=== PATIENT | male | born 1980 | race Caucasian/White ===

== ENCOUNTER 2020-02-10 03:15 | Emergency (ER) | payer SELFPAY ==
[~2020-02-10] VITALS: Ht 190 cm; Wt 120.5 kg
--- OUTSIDE RECORDS SUMMARY | 2020-02-10 03:21 | XMS REPORT ---
Author Author Krystina JACKSON Organization [employer] Address Unknown Phone Unavailable Care Team Providers Care Supervisor [employer] Name Role Phone ADINA JACKSON CP Unavailable Allergies, Adverse Reactions, Alerts Substance Reaction Event Type N.K.D.A. Info Not Available Non Drug Allergy Problems Problem Type Condition Code Onset Dates Condition Statu s Assessment Skin tag L91.8 Active Medications No Known Medications Procedures Procedure Coding System Code Date Office Visit, New Pt., Level 2 CPT-4 39401 N ov 2014 Vital Signs Date/Time: May 30, 2015 Temperature 97.7 F Weight 285.5 lbs Height 74 in BMI 36.65 Index Blood Pressure Diastolic 82 mmHg Blood Pressure Systolic 128 mmHg Cardiac Monitoring Heart Rate 80 bpm Results No Known Results Summary Purpose eClinicalWorks Submission
--- OUTSIDE RECORDS SUMMARY | 2020-02-10 03:21 | XMS REPORT ---
Author Author Krystina DIAZ Organization [facility] Address [address] [place] [address] Care Team Providers Care Level Glass Vial Filler Name Role Phone MISHA DIAZ Unavailable PROBLEMS Type Condition ICD9-CM Code [id number] Code Onset Dates Condition S tatus SNOMED Code Problem Back pain of lumbar region with sciatica M54.40 Active 937187109 Problem Seasonal allergic rhinitis due to pollen J30.1 Active 43533475 Problem Anxiety F41.9 Active 85325536 Problem Acute right-sided low back pain with right-sided sciatica M54.41 Active 057312952 Problem Primary insomnia F51.01 Active 397 2004 ALLERGIES No Known Allergies ENCOUNTERS Encounter Location Date Diagnosis [facility] [address] [address] 13 Dec, 2017 Back pain of lumbar region w ith sciatica M54.40 [facility] [address] [address] 04 Dec, 2017 Acute maxillary sinusitis, r ecurrence not specified J01.00 ; Sinus pressure J34.89 and Seasonal allergic rhinitis due to pollen J30.1 [facility] [address] [address] 14 Nov, 2017 Sore throat J02.9 and Season al allergic rhinitis, unspecified trigger J30.2 [facility] [address] [address] 07 Jun, 2017 Acute right-sided low back p ain with right-sided sciatica M54.41 [facility] [address] [address] May, Anxiety F41.9 and Primary in somnia F51.01 [facility] [address] [facility] [id number] [address] [address] Apr, Acute non-recurrent maxillar y sinusitis J01.00 [facility] [address] [id number] [address] [place] [address] 09 Apr, 2017 Anxiety F41.9 [facility] [address] [facility] [id number] [address] [place] [address] Jan, Anxiety F41.9 and Primary in [facility] F51.01 [facility] [address] [facility] [id number] [address] [place] [address] May, Skin tag L91.8 and Atrophic disorder of skin, unspecified L90.9 [facility] [address] [facility] [id number] [address] [place] [address] May, Skin tag L91.8 IMMUNIZATIONS No Known Immunizations SOCIAL HISTORY Never Assessed REASON FOR VISIT Leg numbness started Sat with back pain JStrasserRN, Twisted ankle yesterday PLAN OF CARE Activity Details Follow Up prn Reason: VITAL SIGNS Height 74 in 2018-01-06 Weight 273.2 lbs 2018-01-06 Temperature 97.5 degrees Fahrenheit 2018-01-06 Heart Rate 66 bpm 2018-01-06 Respiratory Rate 20 2018-01-06 BMI 35.07 kg/m2 2018-01-06 Blood pressure systolic 124 mmHg 2018-01-06 Blood pressure diastolic 80 mmHg 2018-01-06 MEDICATIONS Medication Instructions Dosage Frequency Start Date End Date Duration S tatus PredniSONE 20 MG Orally 3 tablets x 3 days, f ollowed by 2 tablets x 3 days, followed by 1 tablet x 3 days. as directed Dec, Dec, 9 days Active Claritin 10 MG Orally Once a day 1 tablet 24h Active Cyclobenzaprine HCl 10 MG Orally Three times a day 1 tablet as need ed 8h Dec, Dec, 7 days Active RESULTS No Results PROCEDURES No Known procedures INSTRUCTIONS MEDICATIONS ADMINISTERED No Known Medications MEDICAL (GENERAL) HISTORY Type Description Date Medical History Anxiety Surgical History TONSILECTOMY
--- OUTSIDE RECORDS SUMMARY | 2020-02-10 03:21 | XMS REPORT ---
Author Author Krystina THORNTON Organization [facility] Address [address] [place] [address] Care Team Providers Care Metalizing Supervisor Name Role Phone MARY JANEANISHLIBANJESSICA Magana Unavailable PROBLEMS Type Condition ICD9-CM Code [id number] Code Onset Dates Condition S tatus SNOMED Code Problem Acute right-sided low back pain with right-sided sciatica M54.41 Active 522148330 Problem Primary insomnia F51.01 Active 397 2004 Problem Anxiety F41.9 Active 83845899 ALLERGIES No Known Allergies ENCOUNTERS Encounter Location Date Diagnosis [facility] [address] [address] Jun, Acute right-sided low back p ain with right-sided sciatica M54.41 [facility] [address] [address] May, Anxiety F41.9 and Primary in somnia F51.01 [facility] [address] [address] Apr, Acute non-recurrent maxillar y sinusitis J01.00 [facility] [address] [place] [id number] [address] [place] [address] Apr, Anxiety F41.9 [place] [address] [place] [id number] [address] [place] [address] Jan, Anxiety F41.9 and Primary in somnia F51.01 [facility] [address] [place] [id number] [address] [place] [address] May, Skin tag L91.8 and Atrophic disorder of skin, unspecified L90.9 [facility] [address] [place] [id number] [address] [place] [address] May, Skin tag L91.8 IMMUNIZATIONS No Known Immunizations SOCIAL HISTORY Never Assessed REASON FOR VISIT Depression fu -- tino doan PLAN OF CARE Activity Details Follow Up 4 Weeks Reason: VITAL SIGNS Height 74 in 2017-05-04 Weight 266.0 lbs 2017-05-04 Temperature 97.8 degrees Fahrenheit 2017-05-04 Heart Rate 82 bpm 2017-05-04 Respiratory Rate 20 2017-05-04 BMI 34.15 kg/m2 2017-05-04 Blood pressure systolic 138 mmHg 2017-05-04 Blood pressure diastolic 80 mmHg 2017-05-04 MEDICATIONS Medication Instructions Dosage Frequency Start Date End Date Duration S tatus Celexa 40 mg Orally Once a day 1 tablet 24h Apr, 30 day(s) Active Celexa 20 mg Orally Once a day 1 tablet 24h Jan, 30 day(s) Active Alprazolam 0.5 MG Orally Twice a day as needed 1 tablet Apr, 60 days Active Xanax 0.25 MG Orally one hour before bed 1 tablet Jan, Active RESULTS No Results PROCEDURES No Known procedures INSTRUCTIONS MEDICATIONS ADMINISTERED No Known Medications MEDICAL (GENERAL) HISTORY Type Description Date Medical History Anxiety Surgical History TONSILECTOMY
--- OUTSIDE RECORDS SUMMARY | 2020-02-10 03:21 | XMS REPORT ---
Author Author Krystina RIOS N [facility] Organization [facility] Address [address] [place] [address] Care Team Providers Care Insulation Cutter And Former Name Role Phone RONNY RIOS Unavailable PROBLEMS Type Condition ICD9-CM Code [id number] Code Onset Dates Condition S tatus SNOMED Code Problem Back pain of lumbar region with sciatica M54.40 Active 203621118 Problem Seasonal allergic rhinitis due to pollen J30.1 Active 87380983 Problem Anxiety F41.9 Active 78326829 Problem Acute right-sided low back pain with right-sided sciatica M54.41 Active 657456064 Problem Primary insomnia F51.01 Active 397 2004 ALLERGIES No Known Allergies ENCOUNTERS Encounter Location Date Diagnosis [facility] [address] [address] 13 Dec, 2017 Back pain of lumbar region w ith sciatica M54.40 [facility] [address] [address] 04 Dec, 2017 Acute maxillary sinusitis, r ecurrence not specified J01.00 ; Sinus pressure J34.89 and Seasonal allergic rhinitis due to pollen J30.1 [facility] [address] [address] 14 Nov, 2017 Sore throat J02.9 and Season al allergic rhinitis, unspecified trigger J30.2 [facility] [address] [address] 07 Jun, 2017 Acute right-sided low back p ain with right-sided sciatica M54.41 [facility] [address] [address] May, Anxiety F41.9 and Primary in somnia F51.01 [facility] [address] [facility] [id number] [address] [place] [address] Apr, Acute non-recurrent maxillar y sinusitis J01.00 [facility] [address] [id number] [address] [place] [address] Apr, Anxiety F41.9 [facility] [address] [facility] [id number] [address] [place] [address] Jan, Anxiety F41.9 and Primary in [facility] F51.01 [facility] [address] [id number] [address] [place] [address] May, Skin tag L91.8 and Atrophic disorder of skin, unspecified L90.9 [facility] [address] [id number] [address] [place] [address] May, Skin tag L91.8 IMMUNIZATIONS No Known Immunizations SOCIAL HISTORY Never Assessed REASON FOR VISIT sinus congestion, facial pressure started yesterday JStrasserRN PLAN OF CARE Activity Details Follow Up prn Reason: VITAL SIGNS Height 74 in 2017-12-28 Weight 269.0 lbs 2017-12-28 Temperature 97.7 degrees Fahrenheit 2017-12-28 Heart Rate 68 bpm 2017-12-28 Respiratory Rate 20 2017-12-28 BMI 34.53 kg/m2 2017-12-28 Blood pressure systolic 144 mmHg 2017-12-28 Blood pressure diastolic 100 mmHg 2017-12-28 MEDICATIONS Medication Instructions Dosage Frequency Start Date End Date Duration S tatus Zithromax Z-Tucker 250 MG Orally Once a day 2 tablets on the first day, then 1 tablet daily for 4 days 24h Dec, Dec, 5 day(s) Acti ve Celexa 40 mg Orally Once a day 1 tablet 24h Apr, 30 day(s) Not-Taking Flonase 50 MCG/ACT Nasally Once a day 1 spray in each nostril 24h Apr, 30 day(s) Not-Taking Alprazolam 0.5 MG Orally Twice a day as needed 1 tablet Apr, 60 days Not-Taking PredniSONE 20 mg Orally Once a day 2 tablets 24h Dec, Dec, 05 days Active Claritin 10 MG Orally Once a day 1 tablet 24h Active RESULTS No Results PROCEDURES No Known procedures INSTRUCTIONS MEDICATIONS ADMINISTERED No Known Medications MEDICAL (GENERAL) HISTORY Type Description Date Medical History Anxiety Surgical History TONSILECTOMY
--- OUTSIDE RECORDS SUMMARY | 2020-02-10 03:21 | XMS REPORT ---
Author Author Krystina LOGAN Organization [facility] Address [address] [place] [address] Care Team Providers Care Fine Artist Name Role Phone LOGAN, LUIS Unavailable PROBLEMS Type Condition ICD9-CM Code SRE66-IX Code Onset Dates Condition S tatus SNOMED Code Problem Back pain of lumbar region with sciatica M54.40 Active 254763133 Problem Seasonal allergic rhinitis due to pollen J30.1 Active 14819822 Problem Anxiety F41.9 Active 65565784 Problem Acute right-sided low back pain with right-sided sciatica M54.41 Active 404043052 Problem Primary insomnia F51.01 Active 397 2004 ALLERGIES No Known Allergies ENCOUNTERS Encounter Location Date Diagnosis [facility] [address] [address] 13 Dec, 2017 Back pain of lumbar region w ith sciatica M54.40 [facility] [address] [address] 04 Dec, 2017 Acute maxillary sinusitis, r ecurrence not specified J01.00 ; Sinus pressure J34.89 and Seasonal allergic rhinitis due to pollen J30.1 [facility] [address] [address] 14 Nov, 2017 Sore throat J02.9 and Season al allergic rhinitis, unspecified trigger J30.2 [facility] [address] [address] 07 Jun, 2017 Acute right-sided low back p ain with right-sided sciatica M54.41 [facility] [address] [address] May, Anxiety F41.9 and Primary in [facility] F51.01 [facility] [address] [facility] [id number] [address] [place] [address] Apr, Acute non-recurrent maxillar y sinusitis J01.00 [facility] [address] [facility] [id number] [address] [place] [address] Apr, Anxiety F41.9 [facility] [address] [facility] [id number] [address] [place] [address] Jan, Anxiety F41.9 and Primary in [facility] F51.01 [facility] [address] [facility] [id number] [address] [place] [phone] May, Skin tag L91.8 and Atrophic disorder of skin, unspecified L90.9 [facility] [address] [facility] [id number] [address] [place] [address] May, Skin tag L91.8 IMMUNIZATIONS No Known Immunizations SOCIAL HISTORY Never Assessed REASON FOR VISIT sore throat/fever/slight cough. been sick since thursday. [email or web address] PLAN OF CARE Activity Details Follow Up prn Reason: VITAL SIGNS Height 74 in 2017-12-07 Weight 269.0 lbs 2017-12-07 Temperature 97.0 degrees Fahrenheit 2017-12-07 Heart Rate 76 bpm 2017-12-07 Respiratory Rate 20 2017-12-07 BMI 34.53 kg/m2 2017-12-07 Blood pressure systolic 128 mmHg 2017-12-07 Blood pressure diastolic 78 mmHg 2017-12-07 MEDICATIONS Medication Instructions Dosage Frequency Start Date End Date Duration S tatus Flonase 50 MCG/ACT Nasally Once a day 1 spray in each nostril 24h Apr, 30 day(s) Not-Taking Celexa 40 mg Orally Once a day 1 tablet 24h Apr, 30 day(s) Not-Taking Alprazolam 0.5 MG Orally Twice a day as needed 1 tablet Apr, 60 days Not-Taking RESULTS Name Result Date Reference Range STREP A (IN HOUSE) 2017-12-07 STREP A negative Control + Lot # [id number] Exp date 2019 PROCEDURES Procedure Date Ordered Result Body Site STREP A ASSAY W/OPTIC December 07, 2017 INSTRUCTIONS MEDICATIONS ADMINISTERED No Known Medications MEDICAL (GENERAL) HISTORY Type Description Date Medical History Anxiety Surgical History TONSILECTOMY
--- OUTSIDE RECORDS SUMMARY | 2020-02-10 03:21 | XMS REPORT ---
Author Author Krystina DIAZ Organization [facility] Address [address] [place] [address] Care Team Providers Care Operating Room Registered Nurse Name Role Phone MISHA DIAZ Unavailable PROBLEMS Type Condition ICD9-CM Code [id number] Code Onset Dates Condition S tatus SNOMED Code Problem Acute right-sided low back pain with right-sided sciatica M54.41 Active 241476336 Problem Primary insomnia F51.01 Active 397 2004 Problem Anxiety F41.9 Active 84190156 ALLERGIES No Known Allergies ENCOUNTERS Encounter Location Date Diagnosis [facility] [address] [address] November, Sore throat J02.9 and Season al allergic rhinitis, unspecified trigger J30.2 [facility] [address] [place] [id number] [address] [place] [address] Jun, Acute right-sided low back p ain with right-sided sciatica M54.41 [facility] [address] [place] [id number] [address] [place] [address] May, Anxiety F41.9 and Primary in somnia F51.01 [facility] [address] [place] [id number] [address] [place] [address] Apr, Acute non-recurrent maxillar y sinusitis J01.00 [facility] [address] [place] [id number] [address] [place] [address] Apr, Anxiety F41.9 [facility] [address] [place] [id number] [address] [place] [address] Jan, Anxiety F41.9 and Primary in somnia F51.01 [facility] [address] [place] [id number] [place] [address] [address] May, Skin tag L91.8 and Atrophic disorder of skin, unspecified L90.9 [facility] [address] [facility] [id number] [place] [address] May, Skin tag L91.8 IMMUNIZATIONS Vaccine Route Administration Date Status DEXAMETHASONE 4MG/ML (PER 1 MG) IM Intramuscular May 18, 2017 Administered DEPO MEDROL 80 MG/ML IM Intramuscular May 18, 2017 Administer ed SOCIAL HISTORY Never Assessed REASON FOR VISIT facial pain and pressure x2 nights JStrasserRN PLAN OF CARE Activity Details Follow Up prn Reason: VITAL SIGNS Height 74 in 2017-05-18 Weight 265 lbs 2017-05-18 Temperature 97.2 degrees Fahrenheit 2017-05-18 Heart Rate 74 bpm 2017-05-18 Respiratory Rate 22 2017-05-18 BMI 34.02 kg/m2 2017-05-18 Blood pressure systolic 140 mmHg 2017-05-18 Blood pressure diastolic 80 mmHg 2017-05-18 MEDICATIONS Medication Instructions Dosage Frequency Start Date End Date Duration S tatus Celexa 40 mg Orally Once a day 1 tablet 24h Apr, 30 day(s) Active Zyrtec Allergy 10 MG Orally Once a day 1 tablet 24h Apr, 7 May, 30 day(s) Active Flonase 50 MCG/ACT Nasally Once a day 1 spray in each nostril 24h Apr, 30 day(s) Active Alprazolam 0.5 MG Orally Twice a day as needed 1 tablet Apr, 60 days Active RESULTS No Results PROCEDURES Procedure Date Ordered Result Body Site DEXAMETHASONE 4MG/ML (PER 1 MG) May 18, 2017 THER/PROPH/DIAG INJ, SC/IM May 18, 2017 DEPO MEDROL 80 MG/ML May 18, 2017 INSTRUCTIONS MEDICATIONS ADMINISTERED No Known Medications MEDICAL (GENERAL) HISTORY Type Description Date Medical History Anxiety Surgical History TONSILECTOMY
--- OUTSIDE RECORDS SUMMARY | 2020-02-10 03:22 | XMS REPORT ---
Author Author Krystina DIAZ Organization [facility] Address [address] [place] [address] Care Team Providers Care Bike Assembler Name Role Phone MISHA DIAZ Unavailable PROBLEMS Type Condition ICD9-CM Code [id number] Code Onset Dates Condition S tatus SNOMED Code Problem Acute right-sided low back pain with right-sided sciatica M54.41 Active 941439472 Problem Primary insomnia F51.01 Active 397 2004 Problem Anxiety F41.9 Active 88196447 ALLERGIES No Known Allergies ENCOUNTERS Encounter Location Date Diagnosis [facility] [address] [address] November, Sore throat J02.9 and Season al allergic rhinitis, unspecified trigger J30.2 [facility] [address] [place] [id number] [address] [place] [address] Jun, Acute right-sided low back p ain with right-sided sciatica M54.41 [facility] [address] [place] [id number] [address] [place] [address] May, Anxiety F41.9 and Primary in somnia F51.01 [facility] [address] [place] [id number] [address] [place] [address] Apr, Acute non-recurrent maxillar y sinusitis J01.00 [facility] [address] [place] [id number] [address] [place] [address] Apr, Anxiety F41.9 [facility] [address] [place] [id number] [address] [place] [address] Jan, Anxiety F41.9 and Primary in somnia F51.01 [facility] [address] [place] [id number] [place], [place] [address] [address] May, Skin tag L91.8 and Atrophic disorder of skin, unspecified L90.9 [facility] [address] [facility] [id number] [place] [address] May, Skin tag L91.8 IMMUNIZATIONS No Known Immunizations SOCIAL HISTORY Never Assessed REASON FOR VISIT back pain for about 1 month. Sits in a chair at work all day JStrasserRN PLAN OF CARE Activity Details Follow Up prn Reason: VITAL SIGNS Height 74 in 2017-07-02 Weight 265.2 lbs 2017-07-02 Temperature 96.9 degrees Fahrenheit 2017-07-02 Heart Rate 74 bpm 2017-07-02 Respiratory Rate 20 2017-07-02 BMI 34.05 kg/m2 2017-07-02 Blood pressure systolic 138 mmHg 2017-07-02 Blood pressure diastolic 92 mmHg 2017-07-02 MEDICATIONS Medication Instructions Dosage Frequency Start Date End Date Duration S tatus Celexa 40 mg Orally Once a day 1 tablet 24h Apr, 30 day(s) Active Flonase 50 MCG/ACT Nasally Once a day 1 spray in each nostril 24h Apr, 30 day(s) Not-Taking Alprazolam 0.5 MG Orally Twice a day as needed 1 tablet Apr, 60 days Active PredniSONE 50 MG Orally Once a day 1 tablet 24h Jun, Jun, 5 days Active RESULTS No Results PROCEDURES No Known procedures INSTRUCTIONS MEDICATIONS ADMINISTERED No Known Medications MEDICAL (GENERAL) HISTORY Type Description Date Medical History Anxiety Surgical History TONSILECTOMY
--- OUTSIDE RECORDS SUMMARY | 2020-02-10 03:22 | XMS REPORT | Continuity of Care Document ---
Author Organization Unknown Address Unknown Phone Unavailable Allergies There is no data. Medications There is no data. Problems There is no data. Procedures There is no data. Results There is no data. Encounters ACCT No. Visit Date/Time Discharge Status Pt. Type Provider Facility Loc./Unit Complaint [id number] 01/06/2018 15:00:00 01/06/2018 23:59: 59 CLS Outpatient GALDINO ROBERSON [facility] WALK IN [facility]
--- OUTSIDE RECORDS SUMMARY | 2020-02-10 03:22 | XMS REPORT ---
Author Author Krystina GUTIÉRREZ [employer] Address Unknown Phone Unavailable Care Team Providers Care Slag Worker Name Role Phone YESICA GUTIÉRREZ CP Unavailable Allergies, Adverse Reactions, Alerts Substance Reaction Event Type N.K.D.A. Info Not Available Non Drug Allergy Problems Problem Type Condition Code Onset Dates Condition Statu s Assessment Atrophic disorder of skin, unspecified L90.9 Active Assessment Skin tag L91.8 Active Medications No Known Medications Procedures Procedure Coding System Code Date REMOVAL OF SKIN TAGS CPT-4 15768 Jun 12 5 Vital Signs Date/Time: Jun 12, 2015 Temperature 98.4 F Weight 285.3 lbs Height 74 in BMI 36.63 Index Blood Pressure Diastolic 92 mmHg Blood Pressure Systolic 144 mmHg Cardiac Monitoring Heart Rate 72 bpm Results No Known Results Summary Purpose eClinicalWorks Submission
[2020-02-10 03:28] VITALS: BP 131/87
[2020-02-10] MEDS ORDERED: TETANUS,DIPTH,PERTUSS P/F (BOOSTRIX) 0.5 ML VIAL IM ONE (03:30)
[2020-02-10] MEDS ORDERED: LIDOCAINE/EPI 2% 1:100,00 (XYLOCAINE) 20 ML VIAL ONE (03:30)
[2020-02-10] MEDS ORDERED: LIDOCAINE/EPI 2% 1:100,00 (XYLOCAINE) 20 ML VIAL INJ ONE (03:30)
[2020-02-10] MEDS ORDERED: CEPH-507 PO (03:55)
--- NOTE | 2020-02-10 03:56 | ED Lower Extremity ---
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 Bleeding controlled on arrival. Nursing Sepsis Screen: No Definite Risk Source: patient History of Present Illness Date Seen by Provider: Feb 10, 2020 Time Seen by Provider: 03:24 Initial Comments PT ARRIVES VIA POV FROM HOME STATES HE GOT UP TO GO TO BATHROOM AND TRIPPED ON SOMETHING AND HIT HIS LEFT NUNEZ ON METAL BED FRAME OCCURRED JUST PRIOR TO ARRIVAL HAS LACERATION TO LEFT NUNEZ NO OTHER INJURIES NO PAIN WITH WALKING NO PARESTHESIAS OR MOTOR DEFICITS LAST TETANUS IS > 10 YEARS AGO PCP: ANN Allergies and Home Medications Allergies Coded Allergies: No Known Drug Allergies (Unverified , 02/10/20) Home Medications Cephalexin 500 Mg Capsule, 500 MG PO QID Prescribed by: MARION HOFFMAN on 02/10/20 0355 Patient Home Medication List Home Medication List Reviewed: Yes Review of Systems Constitutional: no symptoms reported Musculoskeletal: see HPI Skin: see HPI Psychiatric/Neurological: No Symptoms Reported Past Citsvzm-Qahxjg-Sawfwt Hx Past Med/Social Hx: Reviewed and Corrections made Patient Social History Alcohol Use: Regular Use Recreational Drug Use: No Smoking Status: Current Everyday Smoker Type Used: Cigarettes 2nd Hand Smoke Exposure: Yes Recent Foreign Travel: No Contact w/Someone Who Travel: No Recent Infectious Disease Expo: No Recent Hopitalizations: No Immunizations Up To Date Tetanus Booster (TDap): More than 5yrs Seasonal Allergies Seasonal Allergies: No Past Medical History Surgeries: No Respiratory: No Cardiac: No Neurological: No Genitourinary: No Gastrointestinal: No Musculoskeletal: No Endocrine: No HEENT: No Cancer: No Psychosocial: No Integumentary: No Blood Disorders: No Physical Exam Vital Signs Vital Signs - First Documented 02/10/20 03:28 Temp 36.6 Pulse 71 Resp 16 B/P (MAP) 131/87 (102) Pulse Ox 98 O2 Delivery Room Air Capillary Refill : Less Than 3 Seconds Height, Weight, BMI Height: '" Weight: lbs. oz. kg; 33.00 BMI Method: General Appearance: WD/WN, no apparent distress Hips: left hip normal inspection Legs: left leg other (LACERATION TO LEFT NNUEZ, NO ACTIVE BLEEDING. NO BONY INJURY OR PAIN. MOTOR/SENSORY/VASCULAR INTACT. ) Knees: left knee normal inspection Ankles: left ankle normal inspection Feet: left foot normal inspection Neurologic/Tendon: normal sensation, normal motor functions, normal tendon functions Neurologic/Psychiatric: no motor/sensory deficits, alert, oriented x 3 Skin: normal color, warm/dry, other (7 CM FULL THICKNESS LACERATION TO LEFT MID NUNEZ) Procedures/Interventions Other Wound Location LEFT MID NUNEZ Wound Length (cm): 7 Wound's Depth, Shape: irregular, sub Q Wound Explored: clean Irrigated w/ Saline (ccs): 500 Betadine Prep?: No (BETASEPT) Anesthesia: Lidocaine w/ Epi (2%) Staple Repair: Stapler 35W Number of Sutures: 14 (CALVIN) Layer Closure?: 1 Sterile Dressing Applied?: Yes Progress/Results/Core Measures Results/Orders My Orders Orders - MARION HOFFMAN DO Dipht,María Elena(Acell),Tet Adult (Boostrix (02/10/20 03:30) Lidocaine/Epi 2% 1:100,000 (Xylocaine/Ep (02/10/20 03:30) Wound Dressing-Ed (02/10/20 03:30) Lidocaine/Epi 2% 1:100,000 (Xylocaine/Ep (02/10/20 03:30) Medications Given in ED Current Medications Medications Dose Ordered Sig/Floyd Route Start Time Stop Time Status Last Admin Dose Admin Diphtheria/ Tetanus/Acell Pertussis 0.5 ml ONCE ONCE IM 02/10/20 03:30 02/10/20 03:31 DC 02/10/20 03:45 0.5 ML Lidocaine/ Epinephrine 20 ml ONCE ONCE INJ 02/10/20 03:30 02/10/20 03:31 DC 02/10/20 03:40 20 ML Vital Signs/I&O 02/10/20 03:28 Temp 36.6 Pulse 71 Resp 16 B/P (MAP) 131/87 (102) Pulse Ox 98 O2 Delivery Room Air Blood Pressure Mean: 102 Departure Impression Primary Impression: Laceration of left lower leg Additional Impression: Njkdkozqlz-ubzxtavih-idcxjky (DPT) vaccination administered at current visit Disposition: 01 HOME, SELF-CARE Condition: Stable Departure-Patient Inst. Referrals: [facility] (PCP/Family) Primary Care Physician Patient Instructions: Diphtheria and Tetanus Toxoids, and Acellular Pertussis Vaccine, Laceration Repair With Calvin (DC) Add. Discharge Instructions: LEAVE DRESSING IN PLACE FOR 24 HOURS, THEN CLEAN TWICE A DAY WITH SOAP AND WATER, OTHERWISE KEEP CLEAN AND DRY TYLENOL AND MOTRIN FOR PAIN CALVIN OUT IN 14 DAYS--RETURN TO ER FOR REMOVAL All discharge instructions reviewed with patient and/or family. Voiced understanding. Scripts Cephalexin (Keflex) 500 Mg Capsule 500 MG PO QID, #40 CAP Prov: MARION HOFFMAN DO 02/10/20 MARION HOFFMAN DO Feb 10, 2020 03:56
== END 2020-02-10 04:05 | disposition home or self-care (01) ==
LOC: EDUNIT# 03:15 → ER 03:19
DX: S81.812A Laceration without foreign body, left lower leg, initial encounter (principal); Z23 Encounter for immunization; F17.210 Nicotine dependence, cigarettes, uncomplicated; W01.0XXA Fall on same level from slipping, tripping and stumbling without subsequent striking against object, initial encounter; Y92.009 Unspecified place in unspecified non-institutional (private) residence as the place of occurrence of the external cause
CPT/HCPCS: 90715

== ENCOUNTER 2020-02-26 10:56 | Emergency (ER) | payer SELFPAY ==
[~2020-02-26 10:56] MED LIST: CEPH-507 PO
--- OUTSIDE RECORDS SUMMARY | 2020-02-26 11:02 | XMS REPORT | Continuity of Care Document ---
Author Organization Unknown Address Unknown Phone Unavailable Allergies Active Description Code Type Severity Reaction Onset Reported/Identified Relationship to Patient Clinical Status Yes No Known Drug Allergies [id number] Drug Allergy Unknown N/A 02/10/2020 Medications There is no data. Problems There is no data. Procedures There is no data. Results There is no data. Encounters ACCT No. Visit Date/Time Discharge Status Pt. Type Provider Facility Loc./Unit Complaint [id number] 01/06/2018 15:00:00 01/06/2018 23:59: 59 CLS Outpatient GALDINO ROBERSON [facility] [id number] 02/10/2020 03:19:00 020 04:05:00 DIS Emergency MARION HOFFMAN DO [facility] ER LEFT LEG LAC
[2020-02-26 11:08] VITALS: BP 137/90
== END 2020-02-26 11:15 | disposition home or self-care (01) ==
LOC: EDUNIT# 10:56 → ER 10:58
DX: S81.812D Laceration without foreign body, left lower leg, subsequent encounter (principal)
CPT/HCPCS: 99281